=== PATIENT | female | born 1945 | race Caucasian/White ===

== ENCOUNTER 2016-10-26 13:59 | Emergency (ER) | payer OTHER ==
[2016-10-26 14:13] VITALS: BP 165/66; PULSE 74; RESP 18; TEMP 98.6; O2SAT 97
--- NOTE | 2016-10-26 14:36 | EDPHY ---
H & P Time Seen by Provider: 10/26/16 14:16 HPI/ROS: This patient has 3 day history of URI symptoms and sore throat. She reports that the throat pain is 6/10 with mild relief from [id number] analgesics without other exacerbating factors. She has mild ear pressure associated with nasal congestion. She has associated low-grade subjective fevers and significant fatigue. 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 She was exposed to her grandchildren who both have URIs currently in the week prior to the onset of her symptoms. ROS: Constitutional: No high fevers.-fatigue and low-grade fevers as noted in HPI HEENT: No drainage from her ears. No headache. No facial pain. Pulmonary: No cough. No dyspnea. Cardiovascular: She reports mild chronic lower leg edema for which she takes Lasix with some improvement. GI: No recent nausea or vomiting. 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 General: Pleasant mildly obese 70-year-old female No acute distress HEENT: Nose: Clear discharge bilaterally. No sinus tenderness to percussion. Ears: External canals and tympanic membranes are clear with no erythema or abnormal findings bilaterally. Oropharynx: No erythema or exudates. No dysphonia. No drooling or stridor. Eyes: Pupils equal and react to light. Extraocular motions are intact. Neck: Supple with no meningismus. She has mild anterior cervical lymphadenopathy Lungs: Clear to auscultation bilaterally with no rales, rhonchi or wheeze. No respiratory distress. Cardiac: Regular rate and rhythm with no murmur gallop or rub. No significant pedal edema at this time. Skin: No rash or pallor. Neuro: Alert with no focal deficits noted. Initial differential diagnosis: Viral pharyngitis versus strep pharyngitis, viral URI, atypical bacterial infection such as mycoplasma or pertussis Constitutional: Initial Vital Signs Temperature (C) 37 C 10/26/16 14:11 Heart Rate 74 10/26/16 14:11 Respiratory Rate 18 10/26/16 14:11 Blood Pressure 165/66 H 10/26/16 14:11 O2 Sat (%) 97 10/26/16 14:11 Allergies/Adverse Reactions: fluticasone propionate [From Advair Diskus] Allergy (Verified 03/25/15 14:02) meperidine HCl [From Demerol] Allergy (Verified 03/25/15 14:02) procaine HCl [From Novocain] Allergy (Verified 03/25/15 14:02) salmeterol xinafoate [From Advair Diskus] Allergy (Verified 03/25/15 14:02) Home Medications: Medication Instructions Recorded ASPIRIN 02/26/15 Coq-10 02/26/15 Losartan Potassium 02/26/15 Pantoprazole Sodium 02/26/15 Xanax 02/26/15 IMMUNE GLOBULIN,GAMMA (IGG) 03/25/15 [place] 3 1,000 mg Softgel 03/25/15 Probiotic 03/25/15 Azithromycin [Zithromax] 250 mg PO DAILY #6 tab 10/26/16 MDM/Departure - MDM Diagnostics: Rapid strep is negative ED Course/Re-evaluation: While this patient appears clinically well without evidence of acute sinusitis, MAPPING TECHNICIAN infection or other red flag findings, given her history of a immune deficiency with rapid progression to more significant illness in the past, will cover her with Zithromax antibiotic for her pharyngitis. I counseled regarding this. - Depart Disposition: Home, Routine, Self-Care Clinical Impression: Acute URI Pharyngitis Qualifiers: Pharyngitis/tonsillitis etiology: unspecified etiology Qualified Code(s): J02.9 - Acute pharyngitis, unspecified Condition: Good Instructions: Pharyngitis (ED), Upper Respiratory Infection (ED) Additional Instructions: Diagnosis: 1. Pharyngitis 2. Upper respiratory infection Plan: Ibuprofen and/or Tylenol for discomfort if needed Humidifier Zithromax antibiotic Return for any significant worsening despite treatment plan Follow up with primary care physician for any ongoing symptoms. Prescriptions: Azithromycin [Zithromax] 250 mg PO DAILY #6 tab
== END 2016-10-26 14:45 | disposition home or self-care (01) ==
LOC: CED 13:59
DX: J06.9 Acute upper respiratory infection, unspecified (principal); I10 Essential (primary) hypertension; Z79.82 Long term (current) use of aspirin
CPT/HCPCS: 87880-PO

== ENCOUNTER → 2016-10-31 | Outpatient (CLI) | payer OTHER | LOC: FIMAGING 13:51 | PROVIDERS: ATTEND Nurse Practitioner | DX: J40 Bronchitis, not specified as acute or chronic (principal); R91.1 Solitary pulmonary nodule; R59.9 Enlarged lymph nodes, unspecified; Z85.3 Personal history of malignant neoplasm of breast; Z85.72 Personal history of non-Hodgkin lymphomas | CPT/HCPCS: G0463-PO ==

== ENCOUNTER 2016-12-02 08:21 | Emergency (ER) | payer OTHER ==
[2016-12-02 08:43] VITALS: RESP 18; TEMP 98
--- NOTE | 2016-12-02 09:03 | CPEKG ---
Heart Rate: 71 RR Interval: 845 P-R Interval: 172 QRSD Interval: 102 QT Interval: 396 QTC Interval: 431 P [place]: 42 QRS [place]: 52 T Wave [place]: 11 EKG Severity - NORMAL ECG - EKG Impression: SINUS RHYTHM Electronically Signed By: Tahir Carranza 02-Dec-2016 14:54:27
[2016-12-02 09:11] LABS: % IMMATURE GRANULYOCYTES 0.3 % (0.0-1.1); ABSOLUTE IMMATURE GRANULOCYTES 0.02 10^3/uL (0.00-0.10); ADD DIFF? NO; ADD MORPH? NO; ADD SCAN? NO; ATYPICAL LYMPHOCYTE FLAG 0 (0-99); COLOR YELLOW; FRAGMENT RBC FLAG 0 (0-99); HEMATOCRIT 43.5 % (38.0-47.0); HEMOGLOBIN 14.7 g/dL (12.6-16.3); LEFT SHIFT FLG 0 (0-99); LEUKOCYTE ESTERASE,URINE NEGATIVE (NEGATIVE); LIPEMIA HEMOLYSIS FLAG 90 (0-99); MEAN CELL HEMOGLOBIN 30.5 pg (27.9-34.1); MEAN CELL HEMOGLOBIN CONCENTR. 33.8 g/dL (32.4-36.7); MEAN CELL VOLUME 90.2 fL (81.5-99.8); MEAN PLATELET VOLUME 9.5 fL (8.7-11.7); NITRITE,URINE NEGATIVE (NEGATIVE); PLATELET CLUMPS FLAG 30 (0-99); PLATELET COUNT 210 10^3/uL (150-400); RED BLOOD CELL COUNT 4.82 10^6/uL (4.18-5.33)
[2016-12-02 09:25] LABS: ANION GAP 13 mEq/L (8-16); CALCIUM 9.9 mg/dL (8.5-10.4); CARBON DIOXIDE 26 mEq/l (22-31); CHLORIDE 102 mEq/L (97-110); CREATININE 0.6 mg/dL (0.6-1.0); GLOMERULAR FILTRATION RATE > 60; GLUCOSE 129 mg/dL (70-100); POTASSIUM 4.3 mEq/L (3.5-5.2); SODIUM 141 mEq/L (134-144)
[2016-12-02 09:39] LABS: TROPONIN I < 0.012 ng/mL (0.000-0.034)
--- NOTE | 2016-12-02 10:51 | EDPHY ---
H & P Stated Complaint: c/o dizzyness/ears ringings/arms tingling/high BS/HTN on and off x3 days Time Seen by Provider: 12/02/16 08:27 HPI/ROS: This patient complains of tinnitus associated with hypertension, intermittent throbbing left occipital headache and paresthesias in bilateral hands and feet. 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 She also notes a blood pressure at home of of 180/83 despite compliance with her antihypertensive medication. Finally, she reports intermittent chest pains left-sided for more than a month now. The most recent episode was yesterday and lasted about an hour. She notes no exacerbating factors for the chest pain. There is no onset or worsening with exertion. At the moment she has no chest pain. She admits grieving about her 's . She is spending the day with her 2 adult daughters but came in for evaluation due to her somatic symptoms. ROS: No fevers or chills. No other constitutional symptoms. Neuro: No confusion. No focal weakness. She does report episodes of lightheadedness last night that come and go. Currently no lightheadedness. No vertiginous symptoms. HEENT: No complaints Pulmonary: She reports chronic dyspnea that she attributes to her obesity but no recent change in this. She has a mild cough intermittently since her passed on Thursday but no other pulmonary symptoms. No pleuritic chest pain. Cardiovascular: As per HPI. She has chronic leg edema that she attributes to venous insufficiency without significant change recently. No posterior calf pain GI: She denies any abdominal pain. She is tolerating p.o. intake. : No urinary symptoms. No vaginal discharge. Integumentary: No skin rash. psychiatric: Patient is still able to sleep. No thoughts of hurting herself. Complete review of symptoms is otherwise negative Source: Patient Exam Limitations: No limitations - Personal History Tetanus Vaccine Date: 2004 - Medical/Surgical History Hx Asthma: No Hx Chronic Respiratory Disease: No Hx Diabetes: Yes Hx Cardiac Disease: No Hx Renal Disease: No Hx Cirrhosis: No Hx Alcoholism: No Hx HIV/AIDS: No Hx Splenectomy or Spleen Trauma: No Other PMH: IMMUNO DEFICIENT. B CELL LYMPHOMA. SLEEP APNEA - Social History Smoking Status: Never smoked Alcohol Use: Occasionally Drug Use: None Additional Social History: The patient is retired RN - Physical Exam Exam: Physical exam: Vital signs are normal except for hypertension though a manual blood pressure on arrival is 153/90 General: pleasant obese Patient is in no acute distress. HEENT: Is no external evidence of trauma on exam. Nose atraumatic. Ears: Clear bilaterally with no hemotympanum. Oropharynx: No dental trauma or malocclusion. No intraoral lacerations. Eyes: Pupils are equal and reactive to light. Extraocular motions are intact. Optic fundi: Clear with no papilledema or hemorrhage. Neck: Trachea is midline with no stridor. The patient has no midline neck tenderness and retains a full range of motion without increase in pain. Lungs: Clear to auscultation bilaterally. No rales rhonchi or wheeze. Cardiac: Regular rate and rhythm no murmur gallop or rub. She has mild left more than right leg edema with no posterior calf swelling or tenderness Chest: Nontender. Abdomen: Soft nontender no organomegaly Back: Nontender Extremities: Atraumatic Neuro: GCS of 15. Cranial nerves II through XII intact. Cerebellar exam is normal as judged by symmetric rapid hand movements bilaterally. she maintains normal light touch sensory exam in her areas of paresthesias -bilateral hands and feet. No pronator drift. No sensory or motor deficits are appreciated. Initial differential diagnosis: Grief response, cerebral aneurysm, intracranial bleed, stroke, mi, GERD, Meniere's disease, hypertensive emergency Constitutional: Initial Vital Signs Temperature (C) 36.6 C 12/02/16 08:40 Heart Rate 85 12/02/16 08:40 Respiratory Rate 18 12/02/16 08:40 Blood Pressure 157/121 H 12/02/16 08:40 O2 Sat (%) 98 12/02/16 08:40 O2 Delivery Mode Room Air Allergies/Adverse Reactions: fluticasone propionate [From Advair Diskus] Allergy (Verified 03/25/15 14:02) meperidine HCl [From Demerol] Allergy (Verified 03/25/15 14:02) procaine HCl [From Novocain] Allergy (Verified 03/25/15 14:02) salmeterol xinafoate [From Advair Diskus] Allergy (Verified 03/25/15 14:02) Home Medications: Medication Instructions Recorded ASPIRIN 02/26/15 Coq-10 02/26/15 Losartan Potassium 02/26/15 Xanax 02/26/15 IMMUNE GLOBULIN,GAMMA (IGG) 03/25/15 [place] 3 1,000 mg Softgel 03/25/15 Probiotic 03/25/15 Crestor 12/02/16 Hydrochlorothiazide 12/02/16 Lasix 12/02/16 Medical Decision Making - Diagnostics EKG Interpretation: 12 lead EKG performed at 9:02 a.m. shortly after arrival indication chest pains Sinus rhythm at 71 Intervals: Normal throughout [place]: Normal throughout ST segments: Normal throughout Overall assessment normal EKG Imaging Results: Imaging Impressions Head CT 12/02/16 09:13 Impression: 1. Left frontal lobe deep white matter periventricular 1 cm hypodense nonspecific lesion without hemorrhage or mass effect. Differential diagnosis includes neoplasm versus old lacunar infarct or old trauma. 2. No acute hemorrhage, hydrocephalus, or mass effect. 3. No sinusitis. 4. Recommend MRI of the brain without and with contrast enhancement, if there is continued clinical concern. Findings and recommendations discussed with Emergency Department physician, Tahir Carranza, at 1030 hours on December 02, 2016. Final report concurs with initial preliminary interpretation. I also reviewed the images myself. Imaging: Discussed imaging studies w/ score caller Radiologist ED Course/Re-evaluation: a review of her labs reveals a normal basic metabolic panel, troponin and BNP. Her CBC is also normal. Her urinalysis is normal on recheck the patient's blood pressure normalized without specific intervention. She remained stable on the monitor without any new symptoms. I reviewed her labs with her. Explain her head CT in some detail explained the need for a follow-up MRI with & without contrast Discussion: I think that the patient's symptoms are primarily somatic manifestations of her grief response /increased stress with associated hypertension in the paresthesias may be from intermittent hyperventilation. Because of her hypertension, throbbing headache and neuro symptoms, proceeded with neuro imaging there revealed a left frontal lobe hypodense region concerning for potential neoplastic lesion in this patient with history of previous lymphoma or other chronic finding without evidence of acute stroke, bleed or other acute processes. I discussed this with Dr. Quinn. No evidence of coronary syndrome, metabolic disarray, infectious etiology or other concerning findings today. The patient does not wish to proceed with any further workup today, preferring to be with her 2 daughters. Think is reasonable proceed with the MRI as an outpatient sometime this week. I spoke with her primary care physician affiliated with exam flow who understands the CT findings and will order MRI with and without contrast severe form this week. I also referred her to Dr. steinberg -our neurologist on-call to follow-up regarding her paresthesias in any other lingering symptoms as well as to follow up with the results of the MRI. At the time discharge the patient is comfortable without any further questions and has understanding of for follow- up plan. - Data Points Laboratory Results: Laboratory Results 12/02/16 09:05 12/02/16 09:05 12/02/16 12/02/16 12/02/16 09:05 09:05 09:05 WBC 6.23 10^3/uL 10^3/uL (3.80-9.50) RBC 4.82 10^6/uL 10^6/uL (4.18-5.33) Hgb 14.7 g/dL g/dL (12.6-16.3) Hct 43.5 % % (38.0-47.0) MCV 90.2 fL fL (81.5-99.8) MCH 30.5 pg pg (27.9-34.1) MCHC 33.8 g/dL g/dL (32.4-36.7) RDW 13.0 % % (11.5-15.2) Plt Count 210 10^3/uL 10^3/uL (150-400) MPV 9.5 fL fL (8.7-11.7) Neut % (Auto) 71.2 % % (39.3-74.2) Lymph % (Auto) 18.0 % % (15.0-45.0) [place] % (Auto) 9.1 % % (4.5-13.0) Eos % (Auto) 1.1 % % (0.6-7.6) Baso % (Auto) 0.3 % % (0.3-1.7) Nucleat RBC Rel Count 0.0 % % (0.0-0.2) Absolute Neuts (auto) 4.43 10^3/uL 10^3/uL (1.70-6.50) Absolute Lymphs (auto) 1.12 10^3/uL 10^3/uL (1.00-3.00) Absolute Monos (auto) 0.57 10^3/uL 10^3/uL (0.30-0.80) Absolute Eos (auto) 0.07 10^3/uL 10^3/uL (0.03-0.40) Absolute Basos (auto) 0.02 10^3/uL 10^3/uL (0.02-0.10) Absolute Nucleated RBC 0.00 10^3/uL 10^3/uL (0-0.01) Immature Gran % 0.3 % % (0.0-1.1) Immature Gran # 0.02 10^3/uL 10^3/uL (0.00-0.10) Sodium 141 mEq/L mEq/L (134-144) Potassium 4.3 mEq/L mEq/L (3.5-5.2) Chloride 102 mEq/L mEq/L (97-110) Carbon Dioxide 26 mEq/l mEq/l (22-31) Anion Gap 13 mEq/L mEq/L (8-16) BUN 19 mg/dL mg/dL (7-23) Creatinine 0.6 mg/dL mg/dL (0.6-1.0) Estimated GFR > 60 Glucose 129 mg/dL H mg/dL (70-100) Calcium 9.9 mg/dL mg/dL (8.5-10.4) Troponin I < 0.012 ng/mL ng/mL (0.000-0.034) NT-Pro-B Natriuret Pep 78 pg/mL pg/mL (0-125) Urine Color YELLOW Urine Appearance CLEAR Urine pH 5.0 (5.0-7.5) Ur Specific [place] 1.010 (1.002-1.030) Urine Protein NEGATIVE (NEGATIVE) Urine Ketones NEGATIVE (NEGATIVE) Urine Blood NEGATIVE (NEGATIVE) Urine Nitrate NEGATIVE (NEGATIVE) Urine Bilirubin NEGATIVE (NEGATIVE) Urine Urobilinogen 0.2 EU EU (0.2-1.0) Ur Leukocyte Esterase NEGATIVE (NEGATIVE) Urine Glucose NEGATIVE (NEGATIVE) Departure - Departure Disposition: Home, Routine, Self-Care Clinical Impression: Left frontal lobe lesion, Paresthesias, grief response Tinnitus Qualifiers: Laterality: bilateral Qualified Code(s): H93.13 - Tinnitus, bilateral Condition: Good Instructions: Grief and Loss (ED), Paresthesia (ED), Tinnitus (ED) Additional Instructions: Diagnoses: 1. Left frontal lobe lesion 2. Tinnitis 3. Paresthesias 4. Grief response Plan: Call your primary care physician to facilitate your outpatient MRI of brain with and without contrast. Call Dr. Ortiz or neurologist of her choice for follow-up regarding her paresthesias. Return for any significant worsening of her symptoms despite the treatment plan Referrals: NONE *PRIMARY CARE P,. [Primary Care Provider] - As per Instructions Davidson Ortiz DO [Medical Doctor] - As per Instructions
[2016-12-02 11:15] VITALS: BP 107/62; PULSE 78; O2SAT 96
== END 2016-12-02 11:10 | disposition home or self-care (01) ==
LOC: CED 08:21
DX: R20.2 Paresthesia of skin (principal); L98.9 Disorder of the skin and subcutaneous tissue, unspecified; F43.20 Adjustment disorder, unspecified; E11.9 Type 2 diabetes mellitus without complications; Z79.82 Long term (current) use of aspirin
CPT/HCPCS: 70450-PO; 80048-PO; 81003-PO; 83880-PO; 84484-PO; 85025-PO

== ENCOUNTER 2016-12-21 15:33 | Emergency (ER) | payer OTHER ==
--- NOTE | 2016-12-21 15:43 | EDPHY ---
H & P Time Seen by Provider: 12/21/16 15:38 HPI/ROS: 71-year-old female presents complaining of shortness of breath for several days possibly worsening over the last 1-2 weeks. She states she has had some cough however none today and at times it is productive. No fevers or chills She also states she gets pneumonia quite easily for she has an immuno deficiency problem for which she gets immunoglobulin infusions once a month at [facility]. She is also followed by [facility] for B- cell lymphoma, her latest blood tests were normal per patient. She has had swelling in bilateral legs that tends to respond to compression stockings. She denies recent travel or injuries to her legs Review of systems As per HPI General no fever no chills no weakness HEENT no eye pain no eye discharge. No eye redness, no sore throat Respiratory positive cough, positive shortness of breath Cardiac no chest pain, positive peripheral edema GI no abdominal pain, no diarrhea, no constipation, no nausea, no vomiting no flank pain, no hematuria, no dysuria Musculoskeletal no myalgias, no joint pain Heme no easy bruising, no easy bleeding Endo no polyuria, no polydipsia Skin no rashes, no pruritus Neuro no syncope, no dizziness, no headaches Psych is no suicidal ideation, no homicidal ideation Source: Patient Exam Limitations: No limitations - Personal History Current Tetanus/Diphtheria Vaccine: Yes Tetanus Vaccine Date: 2004 - Medical/Surgical History Hx Asthma: No Hx Chronic Respiratory Disease: No Hx Diabetes: Yes Hx Cardiac Disease: Yes Hx Renal Disease: No Hx Cirrhosis: No Hx Alcoholism: No Hx HIV/AIDS: No Hx Splenectomy or Spleen Trauma: No Other PMH: IMMUNO DEFICIENT. B CELL LYMPHOMA. SLEEP APNEA. Hypertension, hyperlipidemia - Family History Significant Family History: No pertinent family hx - Social History Smoking Status: Never smoked Alcohol Use: None Drug Use: None - Physical Exam Exam: 71-year-old female alert and oriented no acute distress nontoxic appearance no tachypnea no respiratory distress Vital signs stable, afebrile HEENT atraumatic normocephalic, extraocular muscles intact, anicteric TMs clear bilaterally Small lymph node on right posterior occipital scalp, mobile, approximately 1 cm Oropharynx negative for erythema negative exudate, tolerating her own secretions Neck supple no meningismus Lungs clear to auscultation bilaterally Heart regular rate and rhythm without murmur rub or gallop Abdomen nondistended normoactive bowel sounds soft nontender Back no CVA tenderness, no step-offs, no spinal tenderness Extremities no cyanosis clubbing, trace edema bilaterally Neuro alert and oriented, no focal deficits Constitutional: Initial Vital Signs Temperature (C) 37.1 C 12/21/16 15:42 Heart Rate 90 12/21/16 15:42 Respiratory Rate 18 12/21/16 15:42 Blood Pressure 161/83 H 12/21/16 15:42 O2 Sat (%) 93 12/21/16 15:42 O2 Delivery Mode Room Air O2 (L/minute) 2 Allergies/Adverse Reactions: fluticasone propionate [From Advair Diskus] Allergy (Verified 03/25/15 14:02) meperidine HCl [From Demerol] Allergy (Verified 03/25/15 14:02) procaine HCl [From Novocain] Allergy (Verified 03/25/15 14:02) salmeterol xinafoate [From Advair Diskus] Allergy (Verified 03/25/15 14:02) Home Medications: Medication Instructions Recorded ASPIRIN 02/26/15 Coq-10 02/26/15 Losartan Potassium 02/26/15 Xanax 02/26/15 IMMUNE GLOBULIN,GAMMA (IGG) 03/25/15 [place] 3 1,000 mg Softgel 03/25/15 Probiotic 03/25/15 Crestor 12/02/16 Hydrochlorothiazide 12/02/16 Lasix 12/02/16 Amoxicillin/Clavulanate Pot 875 mg PO BID #20 tab 12/21/16 [Augmentin 875 MG TAB (*)] Medical Decision Making - Diagnostics Imaging Results: Imaging Impressions Chest X-Ray 12/21/16 16:09 Impression: Mild bronchitis. No other findings for acute cardiopulmonary abnormality. ED Course/Re-evaluation: Patient seen and evaluated for shortness of breath Differential diagnosis considered URI, bronchitis, pneumonia, pulmonary embolus, anginal equivalent EKG Normal sinus rhythm rate 87 Chest x-ray- bronchitis No consolidation Lab CBC, CMP, BNP, troponin all within normal limits D-dimer negative Impression Bronchitis Plan Patient was recently on azithromycin, will change to Augmentin. Follow-up primary care physician - Data Points Laboratory Results: Laboratory Results 12/21/16 15:58 12/21/16 15:58 12/21/16 12/21/16 12/21/16 15:58 15:58 15:58 WBC 7.66 10^3/uL 10^3/uL (3.80-9.50) RBC 4.69 10^6/uL 10^6/uL (4.18-5.33) Hgb 14.2 g/dL g/dL (12.6-16.3) Hct 42.3 % % (38.0-47.0) MCV 90.2 fL fL (81.5-99.8) MCH 30.3 pg pg (27.9-34.1) MCHC 33.6 g/dL g/dL (32.4-36.7) RDW 13.1 % % (11.5-15.2) Plt Count 210 10^3/uL 10^3/uL (150-400) MPV 9.3 fL fL (8.7-11.7) Neut % (Auto) 77.6 % H % (39.3-74.2) Lymph % (Auto) 12.7 % L % (15.0-45.0) [place] % (Auto) 8.0 % % (4.5-13.0) Eos % (Auto) 1.3 % % (0.6-7.6) Baso % (Auto) 0.1 % L % (0.3-1.7) Nucleat RBC Rel Count 0.0 % % (0.0-0.2) Absolute Neuts (auto) 5.95 10^3/uL 10^3/uL (1.70-6.50) Absolute Lymphs (auto) 0.97 10^3/uL L 10^3/uL (1.00-3.00) Absolute Monos (auto) 0.61 10^3/uL 10^3/uL (0.30-0.80) Absolute Eos (auto) 0.10 10^3/uL 10^3/uL (0.03-0.40) Absolute Basos (auto) 0.01 10^3/uL L 10^3/uL (0.02-0.10) Absolute Nucleated RBC 0.00 10^3/uL 10^3/uL (0-0.01) Immature Gran % 0.3 % % (0.0-1.1) Immature Gran # 0.02 10^3/uL 10^3/uL (0.00-0.10) PT 12.8 SEC SEC (12.0-15.0) INR 0.99 (0.83-1.16) APTT 25.8 SEC SEC (23.0-38.0) D-Dimer 0.40 ug/mLFEU ug/mLFEU (0.00-0.50) Sodium 138 mEq/L mEq/L (134-144) Potassium 4.0 mEq/L mEq/L (3.5-5.2) Chloride 102 mEq/L mEq/L (97-110) Carbon Dioxide 25 mEq/l mEq/l (22-31) Anion Gap 11 mEq/L mEq/L (8-16) BUN 20 mg/dL mg/dL (7-23) Creatinine 0.7 mg/dL mg/dL (0.6-1.0) Estimated GFR > 60 Glucose 163 mg/dL H mg/dL (70-100) Calcium 9.9 mg/dL mg/dL (8.5-10.4) Total Bilirubin 0.6 mg/dL mg/dL (0.1-1.4) AST 27 IU/L IU/L (14-46) ALT 45 IU/L IU/L (9-52) Alkaline Phosphatase 96 IU/L IU/L (38-126) Troponin I < 0.012 ng/mL ng/mL (0.000-0.034) NT-Pro-B Natriuret Pep 81 pg/mL pg/mL (0-125) Total Protein 7.8 g/dL g/dL (6.3-8.2) Albumin 4.1 g/dL g/dL (3.5-5.0) Departure - Departure Disposition: Home, Routine, Self-Care Clinical Impression: Bronchitis Condition: Good Instructions: Acute Bronchitis (ED) Referrals: BELLA LOPEZ [Other] - As per Instructions Prescriptions: Amoxicillin/Clavulanate Pot [Augmentin 875 MG TAB (*)] 875 mg PO BID #20 tab
[2016-12-21 15:44] VITALS: TEMP 98.8
--- NOTE | 2016-12-21 15:46 | CPEKG ---
Heart Rate: 87 RR Interval: 690 P-R Interval: 192 QRSD Interval: 110 QT Interval: 372 QTC Interval: 448 P [place]: 42 QRS [place]: 22 T Wave [place]: 10 EKG Severity - ABNORMAL ECG - EKG Impression: SINUS RHYTHM EKG Impression: NONSPECIFIC INTRAVENTRICULAR CONDUCTION DELAY Electronically Signed By: Eze Carrillo 24-Dec-2016 16:56:41
[2016-12-21 16:13] LABS: % IMMATURE GRANULYOCYTES 0.3 % (0.0-1.1); ABSOLUTE IMMATURE GRANULOCYTES 0.02 10^3/uL (0.00-0.10); ADD DIFF? NO; ADD MORPH? NO; ADD SCAN? NO; ATYPICAL LYMPHOCYTE FLAG 0 (0-99); FRAGMENT RBC FLAG 0 (0-99); HEMATOCRIT 42.3 % (38.0-47.0); HEMOGLOBIN 14.2 g/dL (12.6-16.3); LEFT SHIFT FLG 0 (0-99); LIPEMIA HEMOLYSIS FLAG 80 (0-99); MEAN CELL HEMOGLOBIN 30.3 pg (27.9-34.1); MEAN CELL HEMOGLOBIN CONCENTR. 33.6 g/dL (32.4-36.7); MEAN CELL VOLUME 90.2 fL (81.5-99.8); MEAN PLATELET VOLUME 9.3 fL (8.7-11.7); PLATELET CLUMPS FLAG 10 (0-99); PLATELET COUNT 210 10^3/uL (150-400); RED BLOOD CELL COUNT 4.69 10^6/uL (4.18-5.33); RED CELL DISTRIBUTION WIDTH 13.1 % (11.5-15.2)
[2016-12-21 16:20] LABS: INR 0.99 (0.83-1.16); PROTIME(PATIENT) 12.8 SEC (12.0-15.0)
[2016-12-21 16:21] LABS: APTT 25.8 SEC (23.0-38.0)
[2016-12-21 16:22] LABS: ALANINE AMINOTRANSFERASE 45 IU/L (9-52); ALBUMIN 4.1 g/dL (3.5-5.0); ALKALINE PHOSPHATASE 96 IU/L (38-126); ANION GAP 11 mEq/L (8-16); ASPARTATE AMINOTRANSFERASE 27 IU/L (14-46); BILIRUBIN,TOTAL 0.6 mg/dL (0.1-1.4); CALCIUM 9.9 mg/dL (8.5-10.4); CARBON DIOXIDE 25 mEq/l (22-31); CHLORIDE 102 mEq/L (97-110); CREATININE 0.7 mg/dL (0.6-1.0); GLOMERULAR FILTRATION RATE > 60; GLUCOSE 163 mg/dL (70-100); SODIUM 138 mEq/L (134-144); TOTAL PROTEIN 7.8 g/dL (6.3-8.2)
[2016-12-21 16:34] LABS: TROPONIN I < 0.012 ng/mL (0.000-0.034)
[2016-12-21 16:45] VITALS: RESP 16
[2016-12-21 17:44] VITALS: BP 141/77; PULSE 61; O2SAT 92
== END 2016-12-21 17:38 | disposition home or self-care (01) ==
LOC: CED 15:33
DX: J20.9 Acute bronchitis, unspecified (principal); I10 Essential (primary) hypertension; E11.9 Type 2 diabetes mellitus without complications; Z79.82 Long term (current) use of aspirin
CPT/HCPCS: 71020-PO; 80053-PO; 83880-PO; 84484-PO; 85025-PO; 85378-PO; 85610-PO; 85730-PO

== ENCOUNTER → 2016-12-23 | Outpatient (CLI) | payer OTHER | LOC: SBRMNEURO 21:00 | PROVIDERS: ATTEND Internal Medicine Pulmonary Disease | DX: G47.33 Obstructive sleep apnea (adult) (pediatric) (principal); G47.36 Sleep related hypoventilation in conditions classified elsewhere ==

== ENCOUNTER 2017-03-13 16:15 | Emergency (ER) | payer OTHER ==
[2017-03-13 16:36] VITALS: RESP 16; TEMP 97.7; O2SAT 94
--- NOTE | 2017-03-13 16:47 | EDPHY ---
H & P Time Seen by Provider: 03/13/17 16:23 HPI/ROS: 71-year-old female with a history of hypertension, B-cell lymphoma presents complaining of fatigue, runny nose and concerned that she may have mono. No nausea vomiting or diarrhea. No cough no chest pain. Review of systems As per HPI General no fever no chills no weakness HEENT no eye pain no eye discharge. No eye redness, no sore throat Respiratory no cough, no shortness of breath Cardiac no chest pain, no peripheral edema GI no abdominal pain, no diarrhea, no constipation, no nausea, no vomiting no flank pain, no hematuria, no dysuria Musculoskeletal no myalgias, no joint pain Heme no easy bruising, no easy bleeding Endo no polyuria, no polydipsia Skin no rashes, no pruritus Neuro no syncope, no dizziness, no headaches Psych is no suicidal ideation, no homicidal ideation Past Medical/Surgical History: B-cell lymphoma Hypertension Hyperlipidemia Social History: Denies alcohol or drug use Smoking Status: Never smoked Physical Exam: 71-year-old female alert and oriented no acute distress nontoxic appearance afebrile HEENT atraumatic normocephalic, extraocular muscles intact, anicteric Oropharynx negative for erythema negative exudate, tolerating her own secretions TMs clear bilaterally Nares-light yellow discharge, erythematous nasal turbinates Neck supple no meningismus Lungs clear to auscultation bilaterally Heart regular rate and rhythm without murmur rub or gallop Abdomen nondistended, obese, normoactive bowel sounds soft nontender Back no CVA tenderness, no step-offs, no spinal tenderness Extremities no cyanosis clubbing or edema Neuro alert and oriented, no focal deficits Constitutional: Initial Vital Signs Temperature (C) 36.5 C 03/13/17 16:30 Heart Rate 76 03/13/17 16:30 Respiratory Rate 16 03/13/17 16:30 Blood Pressure 166/90 H 03/13/17 16:30 O2 Sat (%) 94 03/13/17 16:30 O2 Delivery Mode Room Air Allergies/Adverse Reactions: fluticasone propionate [From Advair Diskus] Allergy (Verified 03/25/15 14:02) meperidine HCl [From Demerol] Allergy (Verified 03/25/15 14:02) procaine HCl [From Novocain] Allergy (Verified 03/25/15 14:02) salmeterol xinafoate [From Advair Diskus] Allergy (Verified 03/25/15 14:02) Home Medications: Medication Instructions Recorded ASPIRIN 02/26/15 Coq-10 02/26/15 Losartan Potassium 02/26/15 Xanax 02/26/15 IMMUNE GLOBULIN,GAMMA (IGG) 03/25/15 [place] 3 1,000 mg Softgel 03/25/15 Probiotic 03/25/15 Crestor 12/02/16 Hydrochlorothiazide 12/02/16 Lasix 12/02/16 Amoxicillin/Clavulanate Pot 875 mg PO BID #20 tab 12/21/16 [Augmentin 875 MG TAB (*)] Medical Decision Making ED Course/Re-evaluation: Patient presents requesting mono screen, complains of fatigue and runny nose. Cotton negative Impression URI Plan Symptomatic/supportive care Follow up with primary care physician and/or and oncologist's Differential Diagnosis: URI, bronchitis, pharyngitis, mononucleosis - Data Points Laboratory Results: Laboratory Results 03/13/17 17:15 03/13/17 17:15 03/13/17 03/13/17 03/13/17 17:15 17:15 17:15 WBC 8.12 10^3/uL 10^3/uL (3.80-9.50) RBC 4.46 10^6/uL 10^6/uL (4.18-5.33) Hgb 13.6 g/dL g/dL (12.6-16.3) Hct 39.8 % % (38.0-47.0) MCV 89.2 fL fL (81.5-99.8) MCH 30.5 pg pg (27.9-34.1) MCHC 34.2 g/dL g/dL (32.4-36.7) RDW 13.1 % % (11.5-15.2) Plt Count 200 10^3/uL 10^3/uL (150-400) MPV 9.5 fL fL (8.7-11.7) Neut % (Auto) 75.3 % H % (39.3-74.2) Lymph % (Auto) 15.1 % % (15.0-45.0) Cotton % (Auto) 8.1 % % (4.5-13.0) Eos % (Auto) 1.2 % % (0.6-7.6) Baso % (Auto) 0.1 % L % (0.3-1.7) Nucleat RBC Rel Count 0.0 % % (0.0-0.2) Absolute Neuts (auto) 6.10 10^3/uL 10^3/uL (1.70-6.50) Absolute Lymphs (auto) 1.23 10^3/uL 10^3/uL (1.00-3.00) Absolute Monos (auto) 0.66 10^3/uL 10^3/uL (0.30-0.80) Absolute Eos (auto) 0.10 10^3/uL 10^3/uL (0.03-0.40) Absolute Basos (auto) 0.01 10^3/uL L 10^3/uL (0.02-0.10) Absolute Nucleated RBC 0.00 10^3/uL 10^3/uL (0-0.01) Immature Gran % 0.2 % % (0.0-1.1) Immature Gran # 0.02 10^3/uL 10^3/uL (0.00-0.10) Sodium 142 mEq/L mEq/L (134-144) Potassium 4.0 mEq/L mEq/L (3.5-5.2) Chloride 100 mEq/L mEq/L (97-110) Carbon Dioxide 25 mEq/l mEq/l (22-31) Anion Gap 17 mEq/L H mEq/L (8-16) BUN 16 mg/dL mg/dL (7-23) Creatinine 0.7 mg/dL mg/dL (0.6-1.0) Estimated GFR > 60 Glucose 104 mg/dL H mg/dL (70-100) Calcium 10.0 mg/dL mg/dL (8.5-10.4) Monoscreen NEGATIVE (NEGATIVE) Departure - Departure Disposition: Home, Routine, Self-Care Clinical Impression: Fatigue Condition: Good Instructions: Fatigue (ED) Referrals: NONE *PRIMARY CARE P,. [Primary Care Provider] - As per Instructions
[2017-03-13 17:19] LABS: % IMMATURE GRANULYOCYTES 0.2 % (0.0-1.1); ABSOLUTE IMMATURE GRANULOCYTES 0.02 10^3/uL (0.00-0.10); ADD DIFF? NO; ADD MORPH? NO; ADD SCAN? NO; ATYPICAL LYMPHOCYTE FLAG 0 (0-99); FRAGMENT RBC FLAG 0 (0-99); HEMATOCRIT 39.8 % (38.0-47.0); HEMOGLOBIN 13.6 g/dL (12.6-16.3); LEFT SHIFT FLG 0 (0-99); LIPEMIA HEMOLYSIS FLAG 90 (0-99); MEAN CELL HEMOGLOBIN 30.5 pg (27.9-34.1); MEAN CELL HEMOGLOBIN CONCENTR. 34.2 g/dL (32.4-36.7); MEAN CELL VOLUME 89.2 fL (81.5-99.8); MEAN PLATELET VOLUME 9.5 fL (8.7-11.7); PLATELET CLUMPS FLAG 0 (0-99); PLATELET COUNT 200 10^3/uL (150-400); RED BLOOD CELL COUNT 4.46 10^6/uL (4.18-5.33); RED CELL DISTRIBUTION WIDTH 13.1 % (11.5-15.2)
[2017-03-13 17:34] LABS: ANION GAP 17 mEq/L (8-16); CARBON DIOXIDE 25 mEq/l (22-31); CHLORIDE 100 mEq/L (97-110); CREATININE 0.7 mg/dL (0.6-1.0); GLOMERULAR FILTRATION RATE > 60; GLUCOSE 104 mg/dL (70-100); SODIUM 142 mEq/L (134-144)
[2017-03-13 18:13] VITALS: BP 147/71; PULSE 61
== END 2017-03-13 17:49 | disposition home or self-care (01) ==
LOC: CED 16:15
DX: R53.83 Other fatigue (principal); I10 Essential (primary) hypertension; Z79.82 Long term (current) use of aspirin
CPT/HCPCS: 80048-PO; 85025-PO; 86308-PO

== ENCOUNTER → 2017-08-25 | Outpatient (CLI) | payer OTHER | LOC: CIMAGING 07:25 | PROVIDERS: ATTEND Nurse Practitioner Family | DX: R10.32 Left lower quadrant pain (principal) | CPT/HCPCS: 76705-PO ==

== ENCOUNTER 2018-02-08 16:07 | Emergency (ER) | payer OTHER ==
[2018-02-08] MEDS ORDERED: NS 1,000 ML IV ONE (16:28)
[2018-02-08] MEDS ORDERED: IOPAMIDOL (ISOVUE-300) 100 ML BTL ONE (16:38)
--- NOTE | 2018-02-08 16:43 | EDPHY ---
H & P Stated Complaint: left abd pain since yesterday. told to come by GI group Time Seen by Provider: 02/08/18 16:26 HPI/ROS: CHIEF COMPLAINT: Left lower abdominal pain HISTORY OF PRESENT ILLNESS: The patient is a 72-year-old obese female with a history of total hysterectomy who comes to the emergency department complaining left lower quadrant abdominal pain. She has not had a fever. No nausea vomiting. She did have an episode of diarrhea earlier this morning that has resolved. No urinary symptoms. No rash. No chest pain or shortness of breath. She has a history of lymphoma and is concerned about a flare. Severity: Moderate Modifying factors: None REVIEW OF SYSTEMS: Constitutional: denies: chills, fever, recent illness, recent injury EENTM: denies: blurred vision, double vision, nose congestion Respiratory: denies: cough, shortness of breath Cardiac: denies: chest pain, irregular heart rate, lightheadedness, palpitations Gastrointestinal/Abdominal: See HPI Genitourinary: denies: dysuria, frequency, hematuria, pain Musculoskeletal: denies: joint pain, muscle pain Skin: denies: lesions, rash, jaundice, bruising Neurological: denies: headache, numbness, paresthesia, tingling, dizziness, weakness Hematologic/Lymphatic: denies: blood clots, easy bleeding, easy bruising Immunologic/allergic: denies: HIV/AIDS, transplant 10 systems reviewed and negative except as noted EXAM: GENERAL: Well-appearing, well-nourished and in no acute distress. HEAD: Atraumatic, normocephalic. EYES: Pupils equal round and reactive to light, extraocular movements intact, sclera anicteric, conjunctiva are normal. ENT: TMs normal, nares patent, oropharynx clear without exudates. Moist mucous membranes. NECK: Normal range of motion, supple without lymphadenopathy or JVD. LUNGS: Breath sounds clear to auscultation bilaterally and equal. No wheezes rales or rhonchi. HEART: Regular rate and rhythm without murmurs, rubs or gallops. ABDOMEN: Soft, nontender, normoactive bowel sounds. No guarding, no rebound. No masses appreciated. BACK: No CVA tenderness, no spinal tenderness, step-offs or deformities EXTREMITIES: Normal range of motion, no pitting or edema. No clubbing or cyanosis. NEUROLOGICAL: Cranial nerves II through XII grossly intact. Normal speech, normal gait. 5/5 strength, normal movement in all extremities, normal sensation , normal reflexes PSYCH: Normal mood, normal affect. SKIN: Warm, dry, normal turgor, no visible rashes or lesions. Source: Patient Exam Limitations: No limitations - Personal History Current Tetanus Diphtheria and Acellular Pertussis (TDAP): No Tetanus Vaccine Date: 2004 - Medical/Surgical History Hx Asthma: No Hx Chronic Respiratory Disease: No Hx Diabetes: Yes Hx Cardiac Disease: Yes Hx Renal Disease: No Hx Cirrhosis: No Hx Alcoholism: No Hx HIV/AIDS: No Hx Splenectomy or Spleen Trauma: No Other PMH: IMMUNO DEFICIENT. B CELL LYMPHOMA. SLEEP APNEA. Hypertension, hyperlipidemia, total hysterectomy, prei-rectal fistula, rectoceal repair - Social History Smoking Status: Never smoked Alcohol Use: None Drug Use: None Constitutional: Initial Vital Signs Temperature (C) 36.7 C 02/08/18 16:14 Heart Rate 79 02/08/18 16:14 Respiratory Rate 16 02/08/18 16:14 Blood Pressure 154/104 H 02/08/18 16:14 O2 Sat (%) 93 02/08/18 16:14 O2 Delivery Mode Room Air Allergies/Adverse Reactions: fluticasone propionate [From Advair Diskus] Allergy (Verified 03/25/15 14:02) meperidine HCl [From Demerol] Allergy (Verified 03/25/15 14:02) procaine HCl [From Novocain] Allergy (Verified 03/25/15 14:02) salmeterol xinafoate [From Advair Diskus] Allergy (Verified 03/25/15 14:02) Home Medications: Medication Instructions Recorded ASPIRIN 02/26/15 Coq-10 02/26/15 Losartan Potassium 02/26/15 Xanax 02/26/15 IMMUNE GLOBULIN,GAMMA (IGG) 03/25/15 [place] 3 1,000 mg Softgel 03/25/15 Probiotic 03/25/15 Crestor 12/02/16 Hydrochlorothiazide 12/02/16 Lasix 12/02/16 Amoxicillin/Clavulanate Pot 875 mg PO BID #20 tab 12/21/16 [Augmentin 875 MG TAB (*)] Hydrocodone/APAP 5/325 [[place] 1 - 2 tab PO Q4H PRN #10 tab 02/08/18 5/325 (RX)] Medical Decision Making - Diagnostics Imaging Results: Imaging Impressions Abdomen CT 02/08/18 16:29 Impression: 1. No acute findings in the abdomen or pelvis. 2. Degenerative change in the spine. 3. Additional findings as above. Findings discussed with FAIZA MCMAHON 02/08/2018 at 18:01. Imaging: Discussed imaging studies w/ ground operations supervisor Radiologist ED Course/Re-evaluation: 6:10 p.m. we discussed the CT and lab results which are reassuring. Patient feels reassured that is somewhat frustrated. She states that she will follow up with her web weaver tomorrow. She declines further workup or testing at this point. She would like prescription for pain medication. I warned her about constipation and we discussed addiction. Differential Diagnosis: Partial list of the Differential diagnosis considered include but were not limited to; constipation, diverticulitis, urinary tract infection, kidney stone , zoster and although unlikely based on the history and physical exam, I also considered obstruction, ischemia, volvulus, abscess. I discussed these differential diagnoses and the plan with the patient as well as the usual and expected course. The patient understands that the diagnosis is provisional and that in medicine we are not always correct and that further workup is often warranted. Usual and customary warnings were given. All of the patient's questions were answered. The patient was instructed to return to the emergency department should the symptoms at all worsen or return, otherwise to followup with the physician as we discussed. - Data Points Laboratory Results: 02/08/18 16:54 POC Sodium 147 mEq/L H mEq/L (135-145) POC Potassium 3.8 mEq/L mEq/L (3.3-5.0) POC Chloride 105.0 mEq/L mEq/L (97-110) POC Total CO2 27 mEq/L mEq/L (22-31) POC BUN 17 mg/dL mg/dL (7-23) POC Creatinine 0.7 mg/dL mg/dL (0.6-1.0) POC Glucose 124 mg/dL H mg/dL (70-100) POC Calcium 10.5 mg/dL H mg/dL (8.5-10.4) POC Total Bilirubin 0.5 mg/dL mg/dL (0.1-1.4) POC AST 35 IU/L IU/L (14-46) POC ALT 28 IU/L IU/L (9-52) POC Alk Phosphatase 89 IU/L IU/L (38-126) POC Total Protein 7.3 g/dL g/dL (6.3-8.2) POC Albumin 3.7 g/dL g/dL (3.5-5.0) Medications Given: Discontinued Medications Sodium Chloride (Ns) 1,000 mls @ 0 mls/hr IV EDNOW ONE; Wide Open PRN Reason: Protocol Stop: 02/08/18 16:29 Last Admin: 02/08/18 16:41 Dose: 1,000 mls Point of Care Test Results: CBC CBC Collection Date 02/08/18 CBC Collection Time 16:45 WBC 8.1 RBC 4.62 HGB 14.5 HCT 42.1 PLT 220 Neut # 6.3 Neut 77.6 LYMPH # 1.3 LYMPH 15.7 Other WBC # 0.5 Other WBC 6.7 MCV 91.1 Chemistry 02/08/18 16:54 POC Sodium 147 mEq/L H mEq/L (135-145) POC Potassium 3.8 mEq/L mEq/L (3.3-5.0) POC Chloride 105.0 mEq/L mEq/L (97-110) POC Total CO2 27 mEq/L mEq/L (22-31) POC BUN 17 mg/dL mg/dL (7-23) POC Creatinine 0.7 mg/dL mg/dL (0.6-1.0) POC Glucose 124 mg/dL H mg/dL (70-100) POC Calcium 10.5 mg/dL H mg/dL (8.5-10.4) POC Total Bilirubin 0.5 mg/dL mg/dL (0.1-1.4) POC AST 35 IU/L IU/L (14-46) POC ALT 28 IU/L IU/L (9-52) POC Alk Phosphatase 89 IU/L IU/L (38-126) POC Total Protein 7.3 g/dL g/dL (6.3-8.2) POC Albumin 3.7 g/dL g/dL (3.5-5.0) Urine Dip Collection Date 02/08/18 Collection Time 17:40 Specific [place] (1.002-1.030) 1.015 PH (5.0-7.5) 7.5 Leukocytes (Negative) Negative Nitrites (Negative) Negative Protein (Negative) Negative Glucose (Negative) Negative Ketones (Negative) Negative Urobilnogen (0.2-1.0 EU) 0.2 Bilirubin (Negative) Negative Blood (Negative) Negative Departure - Departure Disposition: Home, Routine, Self-Care Clinical Impression: Abdominal pain Qualifiers: Abdominal location: left lower quadrant Qualified Code(s): R10.32 - Left lower quadrant pain Condition: Fair Instructions: Hydrocodone/Acetaminophen (By mouth), Acute Abdominal Pain (ED) Referrals: [facility] [Other] - As per Instructions [facility] [Edm Groups for Call Sched] - 3-4 days, if not improved Prescriptions: Hydrocodone/APAP 5/325 [[place] 5/325 (RX)] 1 - 2 tab PO Q4H PRN #10 tab PRN Reason: Pain, Moderate
[2018-02-08 18:26] VITALS: BP 140/71
== END 2018-02-08 18:23 | disposition home or self-care (01) ==
LOC: CED 16:07
DX: R10.32 Left lower quadrant pain (principal); I10 Essential (primary) hypertension; E78.5 Hyperlipidemia, unspecified; E86.9 Volume depletion, unspecified; Z90.712 Acquired absence of cervix with remaining uterus; Z87.19 Personal history of other diseases of the digestive system
CPT/HCPCS: 74177; 96360; 99285; Q9967; 80053-PO